=== PATIENT | male | born 1990 | race Hispanic/Latino ===

== ENCOUNTER 2017-03-11 16:33 | Emergency (ER) | payer OTHER, SELFPAY ==
[2017-03-11] MEDS ORDERED: HYDROcodone/Acetaminophen 10/325 mg Tablet ONE (18:26)
== END 2017-03-11 19:16 | disposition home or self-care (01) ==
LOC: ERS 16:33
DX: S22.089A Unspecified fracture of T11-T12 vertebra, initial encounter for closed fracture (principal); F17.200 Nicotine dependence, unspecified, uncomplicated; W20.8XXA Other cause of strike by thrown, projected or falling object, initial encounter
CPT/HCPCS: 99406

== ENCOUNTER 2017-04-18 15:47 | Outpatient (CLI) | payer OTHER ==
--- NOTE | 2017-04-18 16:19 | RAD ---
RADIOGRAPH THORACIC SPINE 3 VIEWS: 04/18/17 HISTORY: 27-year-old male with traumatic thoracic spine pain. FINDINGS: No scoliosis. Vertebral body heights are maintained. Alignment is normal. Pedicles are intact. No hig h grade degenerative changes. There are prominent plate-like linear densities at the bases of the diego ateral lower lobes. IMPRESSION: 1. Subsegmental atelectasis vs. pulmonary scars in the bilateral lower lobes. 2. Normal appearance of the thoracic spine. POS: GERRY
== END 2017-04-18 15:48 | disposition home or self-care (01) ==
LOC: TBSIIMAG 15:47
PROVIDERS: ATTEND Neurological Surgery
DX: M54.6 Pain in thoracic spine (principal)
CPT/HCPCS: 72072

== ENCOUNTER 2017-05-23 14:26 | Outpatient (CLI) | payer OTHER ==
--- NOTE | 2017-05-23 15:05 | RAD ---
THORACIC SPINE THREE VIEWS: History: 27-year-old male with history of thoracic spine pain. Comparison: 04-18-17 FINDINGS: Again noted are some horizontal linear and parenchymal changes at both bases although improved from t he prior study, probably representing some improving subsegmental atelectasis. There appears to be so me vertical height loss of T12 vertebral body region raising concern for a compression or burst type fracture. This is somewhat obscured on the lateral view. Consider follow up CT scan or MRI for furthe r assessment. IMPRESSION: Evidence for vertical height of T12 vertebral body raising concern for possible compression or burst type fracture. Consider follow up CT scan or MRI. The remainder of the thoracic spine appears unremar kable as visualized. Improving linear and parenchymal changes in the lung bases evidence for improvin g subsegmental atelectasis. POS: GERRY
== END 2017-05-23 14:27 | disposition home or self-care (01) ==
LOC: TBSIIMAG 14:26
PROVIDERS: ATTEND Neurological Surgery
DX: M54.6 Pain in thoracic spine (principal); J98.11 Atelectasis
CPT/HCPCS: 72072

== ENCOUNTER 2017-07-27 09:11 | Outpatient (CLI) | payer OTHER ==
--- NOTE | 2017-07-27 10:28 | RAD ---
THREE VIEWS OF THE THORACIC SPINE: COMPARISON: 05/23/17. HISTORY: T-spine injury with tenderness in the mid back. FINDINGS: Three views of the thoracic spine show a stable wedge compression deformity of the lower thoracic renetta tebral body which may represent T12. There is approximately 10-25% height loss. The vertebral rhianna s demonstrate normal alignment without subluxation. IMPRESSION: Stable compression deformity in the lower thoracic spine as above. POS: GERRY
== END 2017-07-27 09:12 | disposition home or self-care (01) ==
LOC: TBSIIMAG 09:11
PROVIDERS: ATTEND Neurological Surgery
DX: M54.6 Pain in thoracic spine (principal); M43.8X4 Other specified deforming dorsopathies, thoracic region
CPT/HCPCS: 72072